=== PATIENT | male | born 1945 | race Caucasian/White ===

== ENCOUNTER 2016-04-24 09:51 | Day surgery (SDC) | payer MEDICARE ==
[~2016-04-24 09:51] MED LIST: DIPHENHYDRAMINE HCL 50 MG/ML VIAL ONE; EPINEPHRINE INJ 1 MG/10 ML DISP.SYRIN ONE; FLUMAZENIL INJ 0.5 MG/5 ML VIAL IV ONE; GLUCAGON,HUMAN RECOMB 1 MG INJ ONE; NALOXONE HCL INJ/PF 0.4 MG/1 ML SDV ONE; ONDANSETRON HCL INJ/PF 4 MG/2 ML SDV ONE; PROMETHAZINE HCL INJ 25 MG/1 ML VIAL ONE
[2016-04-24] MEDS: MIDAZOLAM 2 MG/2 ML INJ ONE ×2 (10:36→10:40)
[2016-04-24] MEDS: FENTANYL CITRATE INJ/PF 100 MCG/2 ML AMPUL ONE ×2 (10:38→10:42)
--- NOTE | 2016-04-24 10:52 | Operative Report ---
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 Gastro-esophageal reflux disease POSTOPERATIVE DIAGNOSIS: Brewer's esophagus status post ablation. Hiatal hernia. Gastritis status post biopsy OPERATION: EGD with ablation. EGD with biopsy SURGEON: MACKENZIE VALE ANESTHESIA: Moderate Sedation - formal grams of Versed, 100 g of fentanyl. Conscious sedation monitoring time 30 minutes TISSUE REMOVED OR ALTERED: Gastric specimen rule out Helicobacter pylori COMPLICATIONS: None. ESTIMATED BLOOD LOSS: none. INTRAOPERATIVE FINDINGS: As described above. PROCEDURE: Patient tolerated the procedure well. No immediate postprocedure complications are noted. Patient is discharged in good condition. Discharge date 04/24/2016. Discharge diet: Regular. Discharge activity: Regular. Follow-up in 2-3 weeks Surveillance EGD in 6 months to document eradication and further treatment if needed Patient is instructed to call the office or proceed to the emergency room should there be any further problems or questions
[2016-04-24 11:52] VITALS: BP 124/589
== END 2016-04-24 11:54 | disposition home or self-care (01) ==
LOC: END 09:51
PROVIDERS: ATTEND Internal Medicine Gastroenterology
PROC: 0DB68ZX Excision of Stomach, Via Natural or Artificial Opening Endoscopic, Diagnostic (ICD-10-PCS; principal; 2016-04-24 10:30)
PROC: 0D558ZZ Destruction of Esophagus, Via Natural or Artificial Opening Endoscopic (ICD-10-PCS; 2016-04-24 10:30)
DX: K22.719 Barrett's esophagus with dysplasia, unspecified (principal); K29.50 Unspecified chronic gastritis without bleeding; K44.9 Diaphragmatic hernia without obstruction or gangrene; I25.10 Atherosclerotic heart disease of native coronary artery without angina pectoris; I10 Essential (primary) hypertension; E78.5 Hyperlipidemia, unspecified; K21.9 Gastro-esophageal reflux disease without esophagitis; Z79.899 Other long term (current) drug therapy; Z79.02 Long term (current) use of antithrombotics/antiplatelets; Z86.010 Personal history of colon polyps
CPT/HCPCS: 43270; 43239; 88342 ×2; 88305 ×2; J2250; J3010; J0171; J1200; J1610; J2310; J2405; J2550; J3490

== ENCOUNTER 2017-12-16 12:26 | Day surgery (SDC) | payer MEDICARE ==
[2017-12-16] MEDS ORDERED: EPINEPHRINE INJ 1 MG/10 ML DISP.SYRIN ONE (12:30)
[2017-12-16] MEDS ORDERED: GLUCAGON,HUMAN RECOMB 1 MG INJ ONE (12:30)
[2017-12-16] MEDS ORDERED: NALOXONE HCL INJ/PF 0.4 MG/1 ML SDV ONE (12:30)
[2017-12-16] MEDS ORDERED: FLUMAZENIL INJ 0.5 MG/5 ML VIAL ONE (12:30)
[2017-12-16] MEDS ORDERED: ONDANSETRON HCL INJ/PF 4 MG/2 ML SDV ONE (12:30)
[2017-12-16] MEDS: MIDAZOLAM 2 MG/2 ML INJ ONE ×6 (12:58→14:14)
[2017-12-16] MEDS: FENTANYL CITRATE INJ/PF 100 MCG/2 ML AMPUL ONE ×3 (13:00→13:15)
--- NOTE | 2017-12-16 15:10 | Operative Report ---
Operative Report DATE OF SURGERY: 12/16/17 Operative Report: The risks, benefits and alternatives of the procedure including the risks of bleeding, perforation requiring surgery are explained to the patient in detail and informed consent is obtained. The patient is brought back to the endoscopy suite and placed in a left, lateral decubital position. Timeout was called. Conscious sedation medications are provided. Rectal examination is done which did not reveal any masses, tears or fissures. An Olympus videoscope was inserted to the patient's rectum. The scope was then carefully advanced all the way to the cecum. Cecum was identified by the usual anatomical landmarks including the ileocecal valve as well as the appendiceal office. Photodocumentation is obtained. The scope was then sequentially pulled back via the rest segments of the colon including the ascending colon, hepatic flexure, transverse colon, splenic flexure, descending colon and finally in to the rectosigmoid portions of the colon. Retroflexion maneuvers performed. The risks benefits and alternatives of the procedure explained to the patient in detail and informed consent is obtained.A GIF Olympus video scope was inserted into the patient's mouth and hypopharynx, the esophagus is identified intubated and insufflated ,the scope was then advanced through the esophagus stomach and duodenum, retroflexion maneuver is done the esophagus stomach and first and second portions of the duodenum examined PREOPERATIVE DIAGNOSIS: Rule out GI bleeding POSTOPERATIVE DIAGNOSIS: Normal colonoscopy showing diverticulosis and internal hemorrhoids no bleeding noted. On upper endoscopy there are 2 inflammatory polyps which started to bleed following polypectomy. The area was injected and some endoclips were placed. By procedures and there was no further bleeding. Patient will be brought back for repeat upper endoscopy to document stability of site. Polyps were retrieved. With [place] net OPERATION: EGD with snare polypectomy. EGD with biopsy. Diagnostic colonoscopy SURGEON: MACKENZIE VALE ANESTHESIA: Moderate Sedation - 8 mg of Versed, 75 mcg of fentanyl. Conscious sedation monitoring time 30 minutes. TISSUE REMOVED OR ALTERED: As noted above. COMPLICATIONS: None. ESTIMATED BLOOD LOSS: None. INTRAOPERATIVE FINDINGS: As noted above. PROCEDURE: Patient tolerated the procedure well. No immediate postprocedure complications are noted. Patient discharged in good condition Discharge date 12/16/2017. Discharge diet: Regular. Discharge activity: Regular. Follow-up EGD tomorrow to document for stability of bleeding site and Endo Clip placement. Follow-up in 2-3 weeks.
[2017-12-16 15:33] VITALS: BP 123/71
== END 2017-12-16 15:35 | disposition home or self-care (01) ==
LOC: END 12:26
PROVIDERS: ATTEND Internal Medicine Gastroenterology
DX: Z86.010 Personal history of colon polyps (principal); K57.30 Diverticulosis of large intestine without perforation or abscess without bleeding; K64.8 Other hemorrhoids; K29.50 Unspecified chronic gastritis without bleeding; K31.7 Polyp of stomach and duodenum; Z12.11 Encounter for screening for malignant neoplasm of colon
CPT/HCPCS: 43251; 88342 ×2; 88305 ×2; J2250; J0171; J3010; 43236; 43239; 43255; 45378; J1610; J2310; J2405; J3490

== ENCOUNTER 2017-12-17 07:45 | Day surgery (SDC) | payer MEDICARE ==
[~2017-12-17 07:45] MED LIST changes: -DIPHENHYDRAMINE HCL 50 MG/ML VIAL ONE; +FENTANYL CITRATE INJ/PF 100 MCG/2 ML AMPUL ONE; -FLUMAZENIL INJ 0.5 MG/5 ML VIAL IV ONE; +FLUMAZENIL INJ 0.5 MG/5 ML VIAL ONE; -PROMETHAZINE HCL INJ 25 MG/1 ML VIAL ONE
[2017-12-17] MEDS: MIDAZOLAM 2 MG/2 ML INJ ONE ×2 (08:24→08:35)
--- NOTE | 2017-12-17 08:39 | Operative Report ---
Operative Report DATE OF SURGERY: 12/17/17 Operative Report: The risks benefits and alternatives of the procedure explained to the patient in detail and informed consent is obtained.A GIF Olympus video scope was inserted into the patient's mouth and hypopharynx, the esophagus is identified intubated and insufflated, the scope was then advanced through the esophagus stomach and duodenum ,retroflexion maneuver is done the esophagus stomach and first and second portions of the duodenum examined PREOPERATIVE DIAGNOSIS: Follow-up GI bleeding from previous upper endoscopy POSTOPERATIVE DIAGNOSIS: Endoclips in place, no bleeding, no residual abnormal tissue. Mild gastritis OPERATION: Diagnostic EGD SURGEON: MACKENZIE VALE ANESTHESIA: Moderate Sedation - 3 mg of Versed, 50 mcg of fentanyl. Conscious sedation monitoring time 30 minutes. TISSUE REMOVED OR ALTERED: None. COMPLICATIONS: None. ESTIMATED BLOOD LOSS: None. INTRAOPERATIVE FINDINGS: As noted above. PROCEDURE: Patient tolerated the procedure well. No immediate postprocedure comp occasions are noted. Patient discharged in good condition. Discharge date 12/17/2017. Discharge diet: Regular. Discharge activity: Regular. 2-3-week follow-up to discuss findings. Do not resume Plavix for 5 more days. Patient is instructed to call the office or proceed to the emergency room should there be any further problems or questions.
[2017-12-17 09:54] VITALS: BP 113/69
== END 2017-12-17 09:50 | disposition home or self-care (01) ==
LOC: END 07:45
PROVIDERS: ATTEND Internal Medicine Gastroenterology
DX: Z09 Encounter for follow-up examination after completed treatment for conditions other than malignant neoplasm (principal); Z87.19 Personal history of other diseases of the digestive system; K29.70 Gastritis, unspecified, without bleeding; I25.10 Atherosclerotic heart disease of native coronary artery without angina pectoris; Z95.1 Presence of aortocoronary bypass graft
CPT/HCPCS: 43235; J2250; J3010; J0171; J1610; J2310; J2405; J3490

== ENCOUNTER → 2018-05-30 | Outpatient (CLI) | payer MEDICARE ==
--- NOTE | 2018-05-30 11:39 | RADIOLOGY REPORT (SQ) ---
EXAM DESCRIPTION: SHOULDER LEFT 2 OR MORE VIEWS COMPLETED DATE/TIME: 05/30/2018 11:00 am REASON FOR STUDY: INJURY OF LEFT SHOULDER, INITIAL ENCOUNTER S49.92XA UNSP INJURY OF LEFT SHOULDER AND UPPER ARM, INIT EN COMPARISON: None. NUMBER OF VIEWS: Three views. TECHNIQUE: Internal rotation, external rotation, and Y view images acquired of the left shoulder. LIMITATIONS: None. FINDINGS: MINERALIZATION: Normal. BONES: No acute fracture or dislocation. Mild subchondral sclerosis in the region of the greater tub erosity of the humerus. JOINTS: Mild acromioclavicular arthrosis. VISUALIZED LUNGS AND RIBS: No pneumothorax. No rib fracture. SOFT TISSUES: Small focal air calcific tendinitis in the region of the rotator cuff tendons. OTHER: Partially visualized anterior median sternotomy. IMPRESSION: 1. No acute osseous findings. 2. Small focal calcific tendinitis in the region of the rotator cuff tendon. 3. Mild acromioclavicular arthrosis and arthritic changes in the region of the greater tuberosity of the humerus. TECHNICAL DOCUMENTATION: JOB ID: [id number] [employer]- All Rights Reserved Reading location - IP/workstation name: [email or web address]
== END ==
LOC: OD 10:31
PROVIDERS: ATTEND Family Medicine
DX: S49.92XA Unspecified injury of left shoulder and upper arm, initial encounter (principal); M19.012 Primary osteoarthritis, left shoulder; X58.XXXA Exposure to other specified factors, initial encounter

== ENCOUNTER → 2018-09-20 | Outpatient (CLI) | payer MEDICARE ==
--- NOTE | 2018-09-20 12:46 | RADIOLOGY REPORT (SQ) ---
EXAM DESCRIPTION: SHOULDER LEFT 2 OR MORE VIEWS COMPLETED DATE/TIME: 09/20/2018 12:32 pm REASON FOR STUDY: PRECORDIAL PAIN, LEFT SHOULDER PAIN, NECK PAIN R07.2 PRECORDIAL PAIN M25.512 PA IN IN LEFT SHOULDER M54.2 CERVICALGIA COMPARISON: None. NUMBER OF VIEWS: Three views. TECHNIQUE: Internal rotation, external rotation, and Y view images acquired of the left shoulder. LIMITATIONS: None. FINDINGS: MINERALIZATION: Normal. BONES: No acute fracture. No worrisome bone lesions. JOINTS: No dislocation. VISUALIZED LUNGS AND RIBS: No pneumothorax. No rib fracture. SOFT TISSUES: No radiopaque foreign body. OTHER: No other significant finding. IMPRESSION: NEGATIVE STUDY OF THE LEFT SHOULDER. NO RADIOGRAPHIC EVIDENCE OF ACUTE INJURY. TECHNICAL DOCUMENTATION: JOB ID: [id number] [employer]- All Rights Reserved Reading location - IP/workstation name: [email or web address]
--- NOTE | 2018-09-20 12:48 | RADIOLOGY REPORT (SQ) ---
EXAM DESCRIPTION: C SP 4 OR 5 VIEWS COMPLETED DATE/TIME: 09/20/2018 12:32 pm REASON FOR STUDY: PRECORDIAL PAIN, LEFT SHOULDER PAIN, NECK PAIN R07.2 PRECORDIAL PAIN M25.512 PA IN IN LEFT SHOULDER M54.2 CERVICALGIA COMPARISON: None. NUMBER OF VIEWS: Five views. TECHNIQUE: AP, lateral, obliques and odontoid radiographic images acquired of the cervical spine. LIMITATIONS: None. FINDINGS: MINERALIZATION: Normal. ALIGNMENT: Anatomic. VERTEBRAE: Vertebral bodies of normal height. DISCS: Disc spaces are maintained. There are marginal osteophytes at C5-6. FORAMINA: No osteophytes or foraminal narrowing. LATERAL AND POSTERIOR ELEMENTS: Hypertrophic facet changes are present at multiple levels. HARDWARE: None in the spine. SOFT TISSUES: No masses or calcifications. Lung apices clear. OTHER: No other significant finding. IMPRESSION: Spondylosis. Facet arthropathy. TECHNICAL DOCUMENTATION: JOB ID: [id number] [employer]- All Rights Reserved Reading location - IP/workstation name: [email or web address]
--- NOTE | 2018-09-20 12:48 | RADIOLOGY REPORT (SQ) ---
EXAM DESCRIPTION: CHEST PA/LATERAL COMPLETED DATE/TIME: 09/20/2018 12:32 pm REASON FOR STUDY: PRECORDIAL PAIN, LEFT SHOULDER PAIN, NECK PAIN COMPARISON: None. EXAM PARAMETERS: NUMBER OF VIEWS: two views TECHNIQUE: Digital Frontal and Lateral radiographic views of the chest acquired. RADIATION DOSE: NA LIMITATIONS: none FINDINGS: LUNGS AND PLEURA: No opacities, masses or pneumothorax. No pleural effusion. MEDIASTINUM AND HILAR STRUCTURES: No masses or contour abnormalities. HEART AND VASCULAR STRUCTURES: Heart normal size. No evidence for failure. BONES: No acute findings. HARDWARE: Sternotomy wires. Graft markers. OTHER: No other significant finding. IMPRESSION: NO SIGNIFICANT RADIOGRAPHIC FINDING IN THE CHEST. TECHNICAL DOCUMENTATION: JOB ID: [id number] [employer]- All Rights Reserved Reading location - IP/workstation name: [email or web address]
== END ==
LOC: OD 12:08
PROVIDERS: ATTEND Family Medicine
DX: R07.2 Precordial pain (principal); M25.512 Pain in left shoulder; M54.2 Cervicalgia
CPT/HCPCS: 71046; 72050